=== PATIENT | female | born 1985 | race Caucasian/White ===

== ENCOUNTER 2022-04-23 14:36 | Outpatient (CLI) | payer BC, SELFPAY | END 2022-04-23 14:37 | disposition home or self-care (01) | LOC: LKVREF 14:37 | PROVIDERS: PCP Family Medicine; Visit Provider Physician Assistant Medical | DX: Z00.00 Encounter for general adult medical examination without abnormal findings (principal); F41.9 Anxiety disorder, unspecified; G43.909 Migraine, unspecified, not intractable, without status migrainosus | CPT/HCPCS: 87624; 88175 ==

== ENCOUNTER 2022-10-08 13:02 | Outpatient (CLI) | payer SELFPAY ==
--- NOTE | 2022-10-08 13:00 | CRLHL7_ITS ---
For Patients: As a result of the Century Cures Act, medical imaging exams and procedure reports are released immediately into your electronic medical record. You may view this report before your referring provider. If you have questions, please contact your health care provider. INDICATION: Adnexal mass on physical examination. Low pelvic pain. TECHNIQUE: Transabdominal and transvaginal pelvic ultrasound. COMPARISON: August 29, 2016. FINDINGS: Normal-appearing uterus measuring 8.1 x 4.0 x 4.5 cm. Normal endometrial stripe of 9 mm. Minimal free pelvic fluid likely physiologic. The right ovary measures 2.2 x 2.0 x 2.0 cm. The left ovary measures 3.5 x 2.0 x 2.8 cm. Blood flow is documented in the ovaries both arterial and venous. No torsion. No adnexal mass. IMPRESSION: 1. Trace free pelvic fluid likely physiologic. 2. No myometrial or ovarian mass. 3. Normal endometrial stripe of 9 mm. Dictated by Milton Radford MD @ 10/08/2022 2:18:57 PM (Electronically Signed)
== END 2022-10-08 13:03 | disposition home or self-care (01) ==
PROVIDERS: PCP Physician Assistant Medical; Visit Provider Physician Assistant Medical
DX: N94.89 Other specified conditions associated with female genital organs and menstrual cycle (principal); R10.2 Pelvic and perineal pain
CPT/HCPCS: 76830; 76856; 93976

== ENCOUNTER 2025-07-29 11:14 | Outpatient (CLI) | payer OTHER, SELFPAY | END 2025-07-29 11:15 | disposition home or self-care (01) | PROVIDERS: PCP Physician Assistant Medical; Visit Provider Physician Assistant Medical | DX: G43.909 Migraine, unspecified, not intractable, without status migrainosus (principal); G89.29 Other chronic pain | CPT/HCPCS: 80053; 82306; 82607; 84443; 86038; 86140; 86200; 86431; 87086 ==

== ENCOUNTER 2025-08-25 16:15 | Outpatient (CLI) | payer OTHER, SELFPAY | END 2025-08-25 16:16 | disposition home or self-care (01) | LOC: LKVREF 16:15 | PROVIDERS: PCP Physician Assistant Medical; Visit Provider Physician Assistant Medical | DX: F98.8 Other specified behavioral and emotional disorders with onset usually occurring in childhood and adolescence (principal) | CPT/HCPCS: 80306 ==